=== PATIENT | male | born 1980 | race Caucasian/White ===

== ENCOUNTER → 2021-09-27 | Outpatient (CLI) | payer OTHER ==
[2021-09-27 21:55] LABS: HCT 55.9 % (39.6-50.0); HGB 18.5 g/dL (13.0-17.0); MCH 29.2 pg (27.0-32.0); MCHC 33.1 g/dL (32.0-37.0); MCV 88.2 fL (80.0-97.0); Mean Platelet Volume 9.6 fL (9.5-12.2); Platelet Count 186 X 10*3/uL (140-440); RBC 6.34 X 10*6/uL (4.40-5.60); RDW 13.1 % (11.5-14.5); WBC 6.96 X 10*3/uL (4.50-10.00)
[2021-09-27 23:01] LABS: African American GFR (CKD) 130.4 (60.0-200.0); Albumin 4.6 g/dL (3.8-4.9); Albumin/Globulin Ratio 1.84 (1.60-3.17); Anion Gap 17.3 mmol/L (4.00-12.00); BUN/Creat Ratio 20.5 Ratio (12.00-20.00); Blood Urea Nitrogen 16.4 mg/dL (9.0-27.0); Calcium 9.1 mg/dL (8.7-10.3); Carbon Dioxide 17.7 mmol/L (21.6-31.8); Chol/HDL Ratio 4.58 Ratio; Globulin 2.5 g/dL (1.6-3.3); HDL Cholesterol 45.6 mg/dL (40.00-60.00); LDL Cholesterol,Calculated 146.7 mg/dL (0.0-131.0); Non-African American GFR(CKD) 112.5 (60.0-200.0); Potassium 4.5 mmol/L (3.5-5.5); Total Bilirubin 0.6 mg/dL (0.30-1.20); Total Protein 7.1 g/dL (6.2-8.2); Triglycerides 83.3 mg/dL (0.00-149.00); VLDL Calculation 16.66 mg/dL (5.00-40.00)
== END | disposition home or self-care (01) ==
LOC: LABWHC1 12:48
PROVIDERS: ATTEND Family Medicine
DX: Z00.01 Encounter for general adult medical examination with abnormal findings (principal)
CPT/HCPCS: 36415; 80053; 80061; 85027

== ENCOUNTER → 2022-10-01 | Outpatient (CLI) | payer OTHER ==
[2022-10-01 14:40] LABS: HCT 52.6 % (39.6-50.0); HGB 17.9 g/dL (13.0-17.0); MCH 30.3 pg (27.0-32.0); Mean Platelet Volume 9.9 fL (9.5-12.2); NRBC Per 100 WBC 0 /100 WBCS (0.0-0.0); Platelet Count 179 X 10*3/uL (140-440); RBC 5.91 X 10*6/uL (4.40-5.60); WBC 6.02 X 10*3/uL (4.50-10.00)
[2022-10-01 14:46] LABS: ALT 30 U/L (10-49); AST 21 U/L (14-35); African American GFR (CKD) 123.4 (60.0-200.0); Albumin 4.6 g/dL (3.8-4.9); Alkaline Phosphatase 55 U/L (41-126); BUN/Creat Ratio 17.67 Ratio (12.00-20.00); Blood Urea Nitrogen 15.9 mg/dL (9.0-27.0); Calcium 9.4 mg/dL (8.7-10.3); Chloride 102 mmol/L (96-109); Chol/HDL Ratio 4.03 Ratio; Globulin 2.7 g/dL (1.6-3.3); Glucose 96 mg/dL (70-110); LDL Cholesterol,Calculated 132.7 mg/dL (0.0-131.0); Non-African American GFR(CKD) 106.5 (60.0-200.0); Potassium 4.7 mmol/L (3.5-5.5); Sodium 140 mmol/L (135-145); Total Protein 7.3 g/dL (6.2-8.2)
== END | disposition home or self-care (01) ==
LOC: LABWHC1 10:08
PROVIDERS: ATTEND Family Medicine
DX: Z00.01 Encounter for general adult medical examination with abnormal findings (principal)
CPT/HCPCS: 36415; 80053; 80061; 85027

== ENCOUNTER → 2023-04-04 | Outpatient (CLI) | payer OTHER ==
[2023-04-04 11:13] LABS: Basophils # (A) 0.07 X 10*3/uL (0.00-0.10); Eosinophils # (A) 0.29 X 10*3/uL (0.04-0.35); Eosinophils % (A) 4.3 %; HCT 51.6 % (39.6-50.0); HGB 17.7 g/dL (13.0-17.0); Immature Grans, Automated 0.4 %; Lymphocytes # (A) 2.94 X 10*3/uL (0.90-5.00); Lymphocytes % (A) 43.9 %; MCH 30.6 pg (27.0-32.0); MCHC 34.3 g/dL (32.0-37.0); MCV 89.1 fL (80.0-97.0); Mean Platelet Volume 9.3 fL (9.5-12.2); Monocytes # (A) 0.57 X 10*3/uL (0.20-1.00); Monocytes % (A) 8.5 %; NRBC Per 100 WBC 0 /100 WBCS (0.0-0.0); Neutrophils # (A) 2.79 X 10*3/uL (1.80-7.70); Neutrophils % (A) 41.9 %; Platelet Count 171 X 10*3/uL (140-440); RBC 5.79 X 10*6/uL (4.40-5.60); RDW 13.2 % (11.5-14.5); WBC 6.69 X 10*3/uL (4.50-10.00)
== END | disposition home or self-care (01) ==
LOC: LABWHC1 07:11
PROVIDERS: ATTEND Family Medicine
DX: R71.8 Other abnormality of red blood cells (principal)
CPT/HCPCS: 36415; 85025

== ENCOUNTER 2024-09-13 09:29 | Emergency (ER) | payer OTHER ==
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
--- NOTE | 2024-09-13 10:44 | XR ---
EXAMINATION TYPE: XR cervical spine comp DATE OF EXAM: 09/13/2024 COMPARISON: NONE HISTORY: Pain TECHNIQUE: Four views are submitted. FINDINGS: The odontoid is intact. There are no compression deformities. The prevertebral soft tissue structur es are within normal limits. Alignment demonstrates straightening of the cervical spine which is non specific and can be seen with muscular spasm. Large hypertrophic spurs before-C5. Degenerative disc d isease C5-6 and C6-C7. Mild foraminal protrusion at C6-C7. IMPRESSION: 1. Mild multilevel degenerative disc disease. Large spur C4-C5. 2. Mild foraminal encroachment C6-C7. [facility], , 09/13/2024 10:42 AM
--- NOTE | 2024-09-13 10:45 | XR ---
EXAM TYPE: LUMBAR SPINE X RAY SERIES COMPARISON: NONE HISTORY: Pain TECHNIQUE: 3 views are submitted. FINDINGS: Alignment is anatomic. The pedicles are intact. The transverse processes are intact. There is no s pondylolisthesis. Multilevel mild hypertrophic and degenerative disc disease. Facet arthropathy lowe r lumbar spine. IMPRESSION: 1. Multilevel mild degenerative disc disease and facet arthropathy.. [facility], , 09/13/2024 10:43 AM
[2024-09-13 11:08] VITALS: BP 135/95; PULSE 81; RESP 16; TEMP 97.9
== END 2024-09-13 11:08 | disposition home or self-care (01) ==
LOC: EC 09:29
CPT/HCPCS: 72050; 72100; 99284